=== PATIENT | male | born 1965 | race Caucasian/White ===

== ENCOUNTER 2017-09-11 23:36 | Inpatient (IN) | payer MEDICARE, MEDICAID ==
[~2017-09-11 23:36] MED LIST: ADV100 IH; LANS15CA17 PO; OXYC-158 PO
[2017-09-12] MEDS ORDERED: ZOLPIDEM TARTRATE 10 MG TABLET PO PRN (01:45)
[2017-09-12 02:53] VITALS: BP 128/77
[2017-09-12 08:07] VITALS: BP 106/60
[2017-09-12] MEDS ORDERED: MAGNESIUM HYDROXIDE SUSPENSION 30 ML UDCUP PO PRN (09:45)
[2017-09-12] MEDS ORDERED: ALBUTEROL SULFATE HFA 90 MCG/PUFF 8 GM INHALER IH PRN (09:45)
[2017-09-12] MEDS ORDERED: ACETAMINOPHEN 325 MG TABLET PO PRN (09:45)
[2017-09-12] MEDS ORDERED: LOPERAMIDE HCL 2 MG CAPSULE PO PRN (09:45)
[2017-09-12] MEDS ORDERED: CloNIDine HCL 0.1 MG TABLET PO PRN (09:45)
[2017-09-12] MEDS ORDERED: MAG HYDROX/AL HYDROX/SIMETH ES 30 ML SUSPENSION UDCUP PO PRN (09:45)
[2017-09-12] MEDS ORDERED: PETROLATUM,WHITE 71 GM JELLY TP PRN (09:45)
[2017-09-12] MEDS ORDERED: ONDANSETRON HCL 4 MG TABLET PO PRN (09:45)
[2017-09-12] MEDS ORDERED: IBUPROFEN 600 MG TABLET PO PRN (09:45)
[2017-09-12] MEDS ORDERED: BENZOCAINE/MENTHOL LOZENGE MM PRN (09:45)
[2017-09-12] MEDS ORDERED: BACITRACIN 28.4 GM OINTMENT TP PRN (09:45)
[2017-09-12] MEDS: LORazepam 2 MG TABLET PO PRN (12:53)
[2017-09-12] MEDS: HALOPERIDOL 5 MG TABLET PO PRN (12:53)
[2017-09-12 16:00] VITALS: BP 116/65
[2017-09-12] MEDS: ClonazePAM 1 MG TABLET PO SCH (16:48)
[2017-09-12] MEDS: QUEtiapine FUMARATE 200 MG TABLET PO SCH (20:13)
[2017-09-13 01:37] VITALS: BP 123/62
[2017-09-13] MEDS: LORazepam 2 MG TABLET PO PRN ×2 (01:37→20:45)
[2017-09-13] MEDS: HALOPERIDOL 5 MG TABLET PO PRN ×3 (01:37→13:33)
[2017-09-13] MEDS: ClonazePAM 1 MG TABLET PO SCH ×2 (08:16→16:26)
[2017-09-13] MEDS: OMEPRAZOLE 20 MG CAPSULE PO SCH (08:16)
[2017-09-13] MEDS: FLUTICASONE/VILANTEROL 200-25 MCG/INH INHALER [14] IH SCH (08:16)
[2017-09-13 08:19] VITALS: BP 121/64
[2017-09-13 08:30] LABS: BASOPHILS % (AUTO) 1.4 % (0.0-2.0); EOSINOPHILS % (AUTO) 1.6 % (1.0-6.0); HEMATOCRIT 39.1 % (41-53); HEMOGLOBIN 13.5 g/dL (13.5-17.5); LYMPHOCYTES # (AUTO) 1.6 K/uL (1.0-4.8); LYMPHOCYTES % (AUTO) 25.4 % (22.0-44.0); MEAN CORPUSCULAR HGB CONC 34.6 G/dL (31.0-37.0); MEAN CORPUSCULAR VOLUME 90 fL (80-100); MONOCYTES # (AUTO) 0.5 K/uL (0.1-1.0); MONOCYTES % (AUTO) 7.6 % (2.0-9.0); PLATELET COUNT (AUTO) 379 K/uL (150-450); RED BLOOD CELL COUNT(AUTO) 4.37 MIL/uL (4.50-5.90); RED CELL DISTRIBUTION WIDTH 13.6 % (11.5-14.5)
[2017-09-13 08:38] LABS: HEMOGLOBIN A1C 5.3 % (4.5-6.2)
[2017-09-13 08:58] LABS: ALANINE AMINOTRANSFERASE 30 U/L (12-78); ALBUMIN 3.1 g/dL (3.4-5.0); ALKALINE PHOSPHATASE 77 U/L (46-116); ANION GAP 7 mmol/L (8-16); ASPARTATE AMINOTRANSFERASE 15 U/L (15-37); BILIRUBIN,TOTAL 0.3 mg/dL (0.1-1.0); CALCIUM, TOTAL 8.4 mg/dL (8.8-10.5); CARBON DIOXIDE 28 mmol/L (22-29); CHLORIDE 104 mmol/L (98-107); CHOLESTEROL 147 mg/dL (131-200); CREATININE 0.87 mg/dL (0.60-1.30); FREE T4 (FREE THYROXINE) 0.83 ng/dL (0.76-1.46); GLOMERULAR FILTR. RATE CALC > 60 mL/min (>60); GLUCOSE,RANDOM 90 mg/dL (70-110); HDL CHOLESTEROL 49 mg/dL (40-60); LDL CHOL (CALC.) 79 mg/dL (0-130); POTASSIUM 4.5 mmol/L (3.5-5.1); SODIUM SERUM 139 mmol/L (136-145); THYROID STIMULATING HORMONE 0.56 uIU/mL (0.36-3.74); TOTAL PROTEIN, SERUM 5.8 g/dL (6.4-8.2); TRIGLYCERIDES 95 mg/dL (15-150); UREA NITROGEN, BLOOD 20 mg/dL (7-18)
[2017-09-13 16:15] VITALS: BP 105/62
[2017-09-13] MEDS: QUEtiapine FUMARATE 200 MG TABLET PO SCH (20:27)
[2017-09-14 05:59] VITALS: BP 110/68
[2017-09-14] MEDS: OMEPRAZOLE 20 MG CAPSULE PO SCH (08:09)
[2017-09-14] MEDS: FLUTICASONE/VILANTEROL 200-25 MCG/INH INHALER [14] IH SCH (08:09)
[2017-09-14] MEDS: ClonazePAM 1 MG TABLET PO SCH ×2 (08:09→16:34)
[2017-09-14 09:17] VITALS: BP 118/62
[2017-09-14] MEDS: LORazepam 2 MG TABLET PO PRN ×2 (11:06→19:40)
[2017-09-14 14:15] VITALS: BP 120/82
[2017-09-14] MEDS: OxyCODONE HCL/ACETAMINOPHEN 5-325 MG TABLET PO SCH (16:34)
[2017-09-14 17:13] VITALS: BP 127/71
[2017-09-14] MEDS: QUEtiapine FUMARATE 200 MG TABLET PO SCH (20:39)
[2017-09-15 05:15] VITALS: BP 120/66
[2017-09-15] MEDS: LORazepam 2 MG TABLET PO PRN (05:21)
[2017-09-15 08:00] VITALS: BP 116/70
[2017-09-15] MEDS: FLUTICASONE/VILANTEROL 200-25 MCG/INH INHALER [14] IH SCH (08:06)
[2017-09-15] MEDS: OMEPRAZOLE 20 MG CAPSULE PO SCH (08:06)
[2017-09-15] MEDS: OxyCODONE HCL/ACETAMINOPHEN 5-325 MG TABLET PO SCH (08:06)
[2017-09-15] MEDS: ClonazePAM 1 MG TABLET PO SCH (08:06)
[2017-09-15] MEDS ORDERED: CLON1 PO (13:17)
[2017-09-15] MEDS ORDERED: QUET400T PO (13:18)
[2017-09-15] MEDS ORDERED: OMEP20 PO (13:20)
[2017-09-15] MEDS ORDERED: ALBU8HFA IH (13:20)
[2017-09-15] MEDS ORDERED: FLUT1BLS IH (13:20)
== END 2017-09-15 16:20 | disposition home or self-care (01) | DRG 885 ==
LOC: B3A 09-12 02:16 → B2X 09-12 19:40
PROVIDERS: ADMIT Psychiatry & Neurology Psychiatry; ATTEND Psychiatry & Neurology Psychiatry
DX: F25.9 Schizoaffective disorder, unspecified (principal); Z59.0 Homelessness; F12.90 Cannabis use, unspecified, uncomplicated; G47.00 Insomnia, unspecified; K21.9 Gastro-esophageal reflux disease without esophagitis; G89.29 Other chronic pain; F41.9 Anxiety disorder, unspecified; J44.9 Chronic obstructive pulmonary disease, unspecified; Z79.891 Long term (current) use of opiate analgesic; Z88.8 Allergy status to other drugs, medicaments and biological substances; Z91.81 History of falling; Z71.51 Drug abuse counseling and surveillance of drug abuser; Z71.6 Tobacco abuse counseling
CPT/HCPCS: 83036; 84439; 84443; J3535

== ENCOUNTER 2017-09-26 17:09 | Inpatient (IN) | payer MEDICARE, MEDICAID ==
[~2017-09-26] VITALS: Ht 182.9 cm; Wt 77.4 kg
[~2017-09-26 17:09] MED LIST changes: -ADV100 IH; +ALBU8HFA IH; +CLON1 PO; +FLUT1BLS IH; -LANS15CA17 PO; +OMEP20 PO; -OXYC-158 PO; +QUET400T PO
[2017-09-26 17:49] LABS: BASOPHILS % (AUTO) 0.8 % (0.0-2.0); EOSINOPHILS % (AUTO) 2.6 % (1.0-6.0); HEMATOCRIT 35.7 % (41-53); HEMOGLOBIN 12.2 g/dL (13.5-17.5); LYMPHOCYTES # (AUTO) 1.2 K/uL (1.0-4.8); LYMPHOCYTES % (AUTO) 15.7 % (22.0-44.0); MEAN CORPUSCULAR HEMOGLOBIN 30.4 pg (26.0-34.0); MEAN CORPUSCULAR HGB CONC 34.2 G/dL (31.0-37.0); MEAN CORPUSCULAR VOLUME 89 fL (80-100); MONOCYTES # (AUTO) 0.6 K/uL (0.1-1.0); MONOCYTES % (AUTO) 7.6 % (2.0-9.0); NEUTROPHILS # (AUTO) 5.5 K/uL (1.8-7.7); NEUTROPHILS % (AUTO) 73.3 % (40.0-70.0); PLATELET COUNT (AUTO) 265 K/uL (150-450); RED BLOOD CELL COUNT(AUTO) 4.02 MIL/uL (4.50-5.90); RED CELL DISTRIBUTION WIDTH 13.7 % (11.5-14.5)
[2017-09-26 17:57] LABS: ANION GAP 7 mmol/L (8-16); CALCIUM, TOTAL 8.2 mg/dL (8.8-10.5); CARBON DIOXIDE 28 mmol/L (22-29); CHLORIDE 106 mmol/L (98-107); CREATININE 0.92 mg/dL (0.60-1.30); GLOMERULAR FILTR. RATE CALC > 60 mL/min (>60); GLUCOSE,RANDOM 102 mg/dL (70-110); POTASSIUM 3.7 mmol/L (3.5-5.1); SODIUM SERUM 141 mmol/L (136-145); UREA NITROGEN, BLOOD 13 mg/dL (7-18)
[2017-09-26 18:04] LABS: ALANINE AMINOTRANSFERASE 35 U/L (12-78); ALBUMIN 3.1 g/dL (3.4-5.0); ALKALINE PHOSPHATASE 76 U/L (46-116); ASPARTATE AMINOTRANSFERASE 38 U/L (15-37); BILIRUBIN,TOTAL 0.5 mg/dL (0.1-1.0); TOTAL PROTEIN, SERUM 6.4 g/dL (6.4-8.2)
[2017-09-26 18:34] LABS: AMPHET/METH SCREEN,URINE POSITIVE (NEGATIVE); APPEARANCE,URINE CLEAR (CLEAR); BARBITURATE SCREEN, URINE NEGATIVE (NEGATIVE); BENZODIAZEPINES SCREEN,URINE NEGATIVE (NEGATIVE); BILIRUBIN,URINE NEGATIVE (NEGATIVE); CANNABINOID SCREEN,URINE NEGATIVE (NEGATIVE); COCAINE SCREEN,URINE NEGATIVE (NEGATIVE); GLUCOSE, URINE (UA) NEGATIVE (NEGATIVE); KETONES,URINE TRACE mg/dL (NEGATIVE); LEUKOCYTE ESTERASE ,URINE NEGATIVE (NEGATIVE); METHADONE SCREEN, URINE NEGATIVE (NEGATIVE); NITRATE,URINE NEGATIVE (NEGATIVE); OCCULT BLOOD,URINE NEGATIVE (NEGATIVE); OPIATE SCREEN,URINE POSITIVE (NEGATIVE); PH,URINE 5.5 (5.0-8.0); PROTEIN,URINE NEGATIVE (NEGATIVE); UROBILINOGEN,URINE 0.2 mg/dL (<=1.0)
[2017-09-26 18:35] LABS: PHENCYCLIDINE SCREEN,URINE NEGATIVE (NEGATIVE)
[2017-09-26] MEDS ORDERED: DiphenhydrAMINE HCL 50 MG/ML VIAL IM ONE (21:45)
[2017-09-26] MEDS ORDERED: ZOLPIDEM TARTRATE 10 MG TABLET PO PRN (21:45)
[2017-09-26] MEDS ORDERED: HALOPERIDOL LACTATE 5 MG/ML VIAL IM ONE (21:45)
[2017-09-26] MEDS ORDERED: LORazepam 2 MG/ML VIAL IM ONE (21:45)
[2017-09-27 00:11] VITALS: BP 122/76
[2017-09-27] MEDS: HALOPERIDOL 5 MG TABLET PO PRN ×3 (08:28→16:36)
[2017-09-27] MEDS: LORazepam 2 MG TABLET PO PRN ×3 (08:28→16:36)
[2017-09-27 08:44] VITALS: BP 121/78
[2017-09-27] MEDS ORDERED: LOPERAMIDE HCL 2 MG CAPSULE PO PRN (11:15)
[2017-09-27] MEDS ORDERED: IBUPROFEN 600 MG TABLET PO PRN (11:15)
[2017-09-27] MEDS ORDERED: CloNIDine HCL 0.1 MG TABLET PO PRN (11:15)
[2017-09-27] MEDS ORDERED: ALBUTEROL SULFATE HFA 90 MCG/PUFF 8 GM INHALER IH PRN ×2 (11:15)
[2017-09-27] MEDS ORDERED: ONDANSETRON HCL 4 MG TABLET PO PRN (11:15)
[2017-09-27] MEDS ORDERED: BACITRACIN 28.4 GM OINTMENT TP PRN (11:15)
[2017-09-27] MEDS ORDERED: BENZOCAINE/MENTHOL LOZENGE MM PRN (11:15)
[2017-09-27] MEDS ORDERED: ACETAMINOPHEN 325 MG TABLET PO PRN (11:15)
[2017-09-27] MEDS ORDERED: MAG HYDROX/AL HYDROX/SIMETH ES 30 ML SUSPENSION UDCUP PO PRN (11:15)
[2017-09-27] MEDS ORDERED: MAGNESIUM HYDROXIDE SUSPENSION 30 ML UDCUP PO PRN (11:15)
[2017-09-27] MEDS ORDERED: PETROLATUM,WHITE 71 GM JELLY TP PRN (11:15)
[2017-09-27] MEDS: FLUTICASONE/VILANTEROL 200-25 MCG/INH INHALER [14] IH SCH (12:29)
[2017-09-27] MEDS: QUEtiapine FUMARATE 200 MG TABLET PO SCH ×2 (12:29→20:20)
[2017-09-27 16:27] VITALS: BP 144/75
[2017-09-28 02:44] VITALS: BP 117/78
[2017-09-28] MEDS: LORazepam 2 MG TABLET PO PRN ×4 (06:04→19:19)
[2017-09-28] MEDS: HALOPERIDOL 5 MG TABLET PO PRN ×3 (06:04→15:02)
[2017-09-28 07:08] LABS: % IRON SATURATION 29.4 % (30-44)
[2017-09-28] MEDS: DOCUSATE SODIUM 100 MG CAPSULE PO SCH (08:26)
[2017-09-28] MEDS: OMEPRAZOLE 20 MG CAPSULE PO SCH (08:26)
[2017-09-28] MEDS: FLUTICASONE/VILANTEROL 200-25 MCG/INH INHALER [14] IH SCH (08:26)
[2017-09-28] MEDS: QUEtiapine FUMARATE 200 MG TABLET PO SCH ×2 (08:27→20:14)
[2017-09-28 12:37] VITALS: BP 107/76
[2017-09-28 17:04] VITALS: BP 110/77
[2017-09-28 19:16] VITALS: BP 127/75
[2017-09-29] MEDS: HALOPERIDOL 5 MG TABLET PO PRN ×3 (07:52→16:05)
[2017-09-29] MEDS: LORazepam 2 MG TABLET PO PRN ×3 (07:52→16:05)
[2017-09-29 08:00] VITALS: BP 116/76
[2017-09-29] MEDS: DOCUSATE SODIUM 100 MG CAPSULE PO SCH (08:05)
[2017-09-29] MEDS: QUEtiapine FUMARATE 200 MG TABLET PO SCH (08:05)
[2017-09-29] MEDS: OMEPRAZOLE 20 MG CAPSULE PO SCH (08:05)
[2017-09-29] MEDS: FLUTICASONE/VILANTEROL 200-25 MCG/INH INHALER [14] IH SCH (08:05)
[2017-09-29] MEDS ORDERED: MULTIVITAMINS WITH IRON TABLET PO SCH (09:00)
[2017-09-29 11:50] VITALS: BP 113/70
[2017-09-29] MEDS ORDERED: QUET200T PO (13:29)
[2017-09-29] MEDS ORDERED: DSS100 PO (13:29)
[2017-09-29] MEDS ORDERED: MULT-1239 PO (13:29)
== END 2017-09-29 17:15 | disposition home or self-care (01) | DRG 885 ==
LOC: EMS 17:10 → 3EX 22:32
PROVIDERS: ADMIT Psychiatry & Neurology Psychiatry; ATTEND Psychiatry & Neurology Psychiatry
DX: F25.1 Schizoaffective disorder, depressive type (principal); R45.851 Suicidal ideations; F15.90 Other stimulant use, unspecified, uncomplicated; F17.210 Nicotine dependence, cigarettes, uncomplicated; F41.9 Anxiety disorder, unspecified; G47.00 Insomnia, unspecified; D64.9 Anemia, unspecified; F12.90 Cannabis use, unspecified, uncomplicated; J44.9 Chronic obstructive pulmonary disease, unspecified; K21.9 Gastro-esophageal reflux disease without esophagitis; Z91.14 Patient's other noncompliance with medication regimen; Z79.899 Other long term (current) drug therapy; Z88.8 Allergy status to other drugs, medicaments and biological substances
CPT/HCPCS: 83540; 83550; 87081; 96372; 99285; G0480; J1200; J1630; J2060

== ENCOUNTER 2017-11-25 23:32 | Emergency (ER) | payer OTHER ==
[~2017-11-25] VITALS: Ht 177.8 cm; Wt 81.8 kg
[~2017-11-25 23:32] MED LIST changes: -ALBU8HFA IH; -CLON1 PO; +DSS100 PO; +MULT-1239 PO; +QUET200T PO
[2017-11-25 23:48] LABS: GLUCOSE,POINT OF CARE 95 MG/DL (70-110)
[2017-11-26] MEDS ORDERED: CLON2TAB11 PO (00:05)
[2017-11-26] MEDS ORDERED: GABA-326 PO (00:05)
[2017-11-26] MEDS ORDERED: ALBU8.5H8 IH (00:05)
[2017-11-26 01:14] LABS: AMPHET/METH SCREEN,URINE NEGATIVE (NEGATIVE); BARBITURATE SCREEN, URINE NEGATIVE (NEGATIVE); BENZODIAZEPINES SCREEN,URINE NEGATIVE (NEGATIVE); CANNABINOID SCREEN,URINE POSITIVE (NEGATIVE); COCAINE SCREEN,URINE NEGATIVE (NEGATIVE); METHADONE SCREEN, URINE NEGATIVE (NEGATIVE); OPIATE SCREEN,URINE NEGATIVE (NEGATIVE)
[2017-11-26 01:15] LABS: PHENCYCLIDINE SCREEN,URINE NEGATIVE (NEGATIVE)
[2017-11-26 01:38] LABS: BASOPHILS % (AUTO) 1.1 % (0.0-2.0); EOSINOPHILS % (AUTO) 1.9 % (1.0-6.0); HEMATOCRIT 37.9 % (41-53); HEMOGLOBIN 13.2 g/dL (13.5-17.5); LYMPHOCYTES # (AUTO) 1.7 K/uL (1.0-4.8); LYMPHOCYTES % (AUTO) 20.9 % (22.0-44.0); MEAN CORPUSCULAR HGB CONC 34.7 G/dL (31.0-37.0); MEAN CORPUSCULAR VOLUME 87 fL (80-100); MONOCYTES # (AUTO) 0.6 K/uL (0.1-1.0); MONOCYTES % (AUTO) 7.5 % (2.0-9.0); NEUTROPHILS # (AUTO) 5.6 K/uL (1.8-7.7); NEUTROPHILS % (AUTO) 68.6 % (40.0-70.0); PLATELET COUNT (AUTO) 290 K/uL (150-450); RED BLOOD CELL COUNT(AUTO) 4.38 MIL/uL (4.50-5.90); RED CELL DISTRIBUTION WIDTH 12.7 % (11.5-14.5)
[2017-11-26 01:50] LABS: ANION GAP 4 mmol/L (8-16); CALCIUM, TOTAL 8.8 mg/dL (8.8-10.5); CARBON DIOXIDE 30 mmol/L (22-29); CHLORIDE 107 mmol/L (98-107); CREATININE 1.13 mg/dL (0.60-1.30); GLOMERULAR FILTR. RATE CALC > 60 mL/min (>60); GLUCOSE,RANDOM 106 mg/dL (70-110); POTASSIUM 4.2 mmol/L (3.5-5.1); SODIUM SERUM 141 mmol/L (136-145); UREA NITROGEN, BLOOD 23 mg/dL (7-18)
[2017-11-26 01:58] LABS: ALANINE AMINOTRANSFERASE 23 U/L (12-78); ALBUMIN 3.2 g/dL (3.4-5.0); ALKALINE PHOSPHATASE 92 U/L (46-116); ASPARTATE AMINOTRANSFERASE 18 U/L (15-37); BILIRUBIN,TOTAL 0.2 mg/dL (0.1-1.0); TOTAL PROTEIN, SERUM 6.8 g/dL (6.4-8.2)
[2017-11-26 04:00] VITALS: BP 119/76
== END 2017-11-26 04:10 | disposition home or self-care (01) ==
LOC: EMS 23:33
DX: G40.909 Epilepsy, unspecified, not intractable, without status epilepticus (principal); F41.9 Anxiety disorder, unspecified; J44.9 Chronic obstructive pulmonary disease, unspecified; F17.210 Nicotine dependence, cigarettes, uncomplicated; F12.90 Cannabis use, unspecified, uncomplicated; F19.90 Other psychoactive substance use, unspecified, uncomplicated; Z88.8 Allergy status to other drugs, medicaments and biological substances
CPT/HCPCS: 36415; 70450; 80053; 80307; 82962; 84484; 85025; 93005; 99285; G0480

== ENCOUNTER 2018-08-30 21:44 | Emergency (ER) | payer OTHER ==
[~2018-08-30] VITALS: Ht 177.8 cm; Wt 81.8 kg
[~2018-08-30 21:44] MED LIST changes: +ALBU8.5H8 IH; +CLON2TAB11 PO; -DSS100 PO; -FLUT1BLS IH; +GABA800T9 PO; -MULT-1239 PO; -QUET200T PO
[2018-08-30] MEDS ORDERED: CLON2 PO ×2 (23:55)
[2018-08-30] MEDS ORDERED: QUET300T2 PO (23:55)
[2018-08-30] MEDS ORDERED: BUDE10.2 IH (23:55)
[2018-08-30] MEDS ORDERED: AMIT75 PO (23:55)
[2018-08-31 01:20] LABS: BASOPHILS % (AUTO) 1.1 % (0.0-2.0); EOSINOPHILS % (AUTO) 5.5 % (1.0-6.0); HEMATOCRIT 37.4 % (41-53); HEMOGLOBIN 12.3 g/dL (13.5-17.5); LYMPHOCYTES # (AUTO) 1.5 K/uL (1.0-4.8); LYMPHOCYTES % (AUTO) 23.5 % (22.0-44.0); MEAN CORPUSCULAR HEMOGLOBIN 28.9 pg (26.0-34.0); MEAN CORPUSCULAR VOLUME 88 fL (80-100); MONOCYTES # (AUTO) 0.9 K/uL (0.1-1.0); MONOCYTES % (AUTO) 13.9 % (2.0-9.0); NEUTROPHILS # (AUTO) 3.7 K/uL (1.8-7.7); PLATELET COUNT (AUTO) 275 K/uL (150-450); RED BLOOD CELL COUNT(AUTO) 4.27 MIL/uL (4.50-5.90); RED CELL DISTRIBUTION WIDTH 17.4 % (11.5-14.5)
[2018-08-31 01:23] LABS: ANION GAP 6 mmol/L (8-16); CALCIUM, TOTAL 8.8 mg/dL (8.8-10.5); CARBON DIOXIDE 28 mmol/L (22-29); CHLORIDE 106 mmol/L (98-107); GLOMERULAR FILTR. RATE CALC > 60 mL/min (>60); GLUCOSE,RANDOM 104 mg/dL (70-110); POTASSIUM 3.8 mmol/L (3.5-5.1); SODIUM SERUM 140 mmol/L (136-145); UREA NITROGEN, BLOOD 16 mg/dL (7-18)
[2018-08-31 01:29] LABS: ALANINE AMINOTRANSFERASE 914 U/L (12-78); ALBUMIN 2.6 g/dL (3.4-5.0); ALKALINE PHOSPHATASE 287 U/L (46-116); ASPARTATE AMINOTRANSFERASE 669 U/L (15-37); BILIRUBIN,TOTAL 3.5 mg/dL (0.1-1.0); TOTAL PROTEIN, SERUM 5.9 g/dL (6.4-8.2)
[2018-08-31 02:03] VITALS: BP 110/62
== END 2018-08-31 02:14 | disposition home or self-care (01) ==
LOC: EMS 21:45
DX: F11.20 Opioid dependence, uncomplicated (principal); F41.9 Anxiety disorder, unspecified; J44.9 Chronic obstructive pulmonary disease, unspecified; F12.90 Cannabis use, unspecified, uncomplicated; F15.90 Other stimulant use, unspecified, uncomplicated; F17.210 Nicotine dependence, cigarettes, uncomplicated; Z88.8 Allergy status to other drugs, medicaments and biological substances; Z79.899 Other long term (current) drug therapy
CPT/HCPCS: 36415; 80053; 85025; 99283; G0480

== ENCOUNTER 2019-07-23 22:43 | Emergency (ER) | payer MEDICARE, OTHER ==
[~2019-07-23] VITALS: Ht 183.5 cm; Wt 75.0 kg
[~2019-07-23 22:43] MED LIST changes: +AMIT75 PO; +BUDE10.2 IH; +CLON2 PO; -CLON2TAB11 PO; -GABA800T9 PO; +QUET300T2 PO; -QUET400T PO
[2019-07-23 22:53] VITALS: BP 160/93
== END 2019-07-24 00:36 | disposition home or self-care (01) ==
LOC: EMS 22:55
DX: Z76.0 Encounter for issue of repeat prescription (principal); K21.9 Gastro-esophageal reflux disease without esophagitis; F41.9 Anxiety disorder, unspecified; F12.90 Cannabis use, unspecified, uncomplicated; F19.90 Other psychoactive substance use, unspecified, uncomplicated; Z88.8 Allergy status to other drugs, medicaments and biological substances

== ENCOUNTER 2019-07-24 16:57 | Emergency (ER) | payer MEDICARE, OTHER ==
[~2019-07-24] VITALS: Ht 182.9 cm; Wt 72.7 kg
[2019-07-24] MEDS ORDERED: HydrOXYzine HCL 50 MG TABLET PO ONE (17:30)
[2019-07-24 17:43] VITALS: BP 139/62
== END 2019-07-24 18:55 | disposition home or self-care (01) ==
LOC: EMS 17:00
DX: F41.9 Anxiety disorder, unspecified (principal); F15.10 Other stimulant abuse, uncomplicated; J44.9 Chronic obstructive pulmonary disease, unspecified; F12.90 Cannabis use, unspecified, uncomplicated; F17.210 Nicotine dependence, cigarettes, uncomplicated; Z88.8 Allergy status to other drugs, medicaments and biological substances; Z79.899 Other long term (current) drug therapy
CPT/HCPCS: 99406